=== PATIENT | female | born 1980 | race African-American/Black ===

== ENCOUNTER 2017-06-08 00:02 | Emergency (ER) | payer OTHER ==
[~2017-06-08] VITALS: Ht 160 cm; Wt 97.5 kg
--- NOTE | ~2017-06-08 | EKG ---
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
[2017-06-08 00:34] LABS: BASOPHILS 0.5 % (0.0-2.0); HEMATOCRIT 39.5 % (37.0-47.0); HEMOGLOBIN 12.7 gm/dL (12.0-15.0); LYMPHOCYTES 31.1 % (24.0-44.0); MCH 22.9 pg (26.0-34.0); MCHC 32.1 g/dL (28.0-37.0); MCV 71.4 fL (80.0-100.0); MONOCYTES 6.2 % (1.0-8.0); PLATELET COUNT 347 thou/uL (150-400); POLYS 60.2 % (36.0-66.0); RBC 5.53 mil/uL (4.20-5.00); RDW 14.8 % (10.5-14.5)
[2017-06-08 00:39] LABS: ANION GAP 10 mmol/L (7-16); BUN 7 mg/dL (7-18); CALCIUM 9.2 mg/dL (8.5-10.1); CHLORIDE 102 mmol/L (98-107); CO2 26 mmol/L (21-32); CREATININE 0.7 mg/dL (0.6-1.0); GLUCOSE 105 mg/dL (74-106); POTASSIUM 3.7 mmol/L (3.5-5.1); SODIUM 138 mmol/L (136-145)
[2017-06-08 00:41] LABS: MANUAL DIFF NO
[2017-06-08 00:54] LABS: TROPONIN-I < 0.04 ng/mL (<0.04-0.07)
[2017-06-08 00:55] LABS: ALBUMIN 4.2 g/dL (3.4-5.0); DIRECT BILIRUBIN 0.1 mg/dL (<0.1-0.3); TOTAL BILIRUBIN 0.4 mg/dL (<0.1-1.0); TOTAL PROTEIN 7.5 g/dL (6.4-8.2)
[2017-06-08 01:01] LABS: AMP/METHAMP Negative (Negative); BARBITURATES Negative (Negative); BENZODIAZEPINES Negative (Negative); COCAINE Negative (Negative); METHADONE Negative (Negative); OPIATES Negative (Negative); PCP Negative (Negative); THC Negative (Negative)
[2017-06-08 01:54] LABS: URINE BILIRUBIN NEGATIVE (Negative); URINE BLOOD NEGATIVE (Negative); URINE COLOR YELLOW; URINE GLUCOSE-RANDOM* NEGATIVE (Negative); URINE KETONES NEGATIVE (Negative); URINE PROTEIN (DIPSTICK) NEGATIVE (Negative); URINE SPECIFIC GRAVITY <= 1.005 (1.003-1.035); URINE UROBILINOGEN 0.2 E.U./dl (0.2-1.0)
[2017-06-08 01:58] LABS: URINE LEUKOCYTES-REFLEX TRACE (Negative)
[2017-06-08] MEDS ORDERED: ZOFRAN ODT4 MG PO (02:03)
[2017-06-08 02:42] VITALS: BP 123/71
== END 2017-06-08 02:44 | disposition home or self-care (01) ==
LOC: ER 00:02
PROVIDERS: Emergency Medicine
DX: R10.30 Lower abdominal pain, unspecified (principal); R11.2 Nausea with vomiting, unspecified; I10 Essential (primary) hypertension; Z88.2 Allergy status to sulfonamides

== ENCOUNTER 2017-06-19 17:09 | Emergency (ER) | payer OTHER ==
[~2017-06-19] VITALS: Ht 160 cm; Wt 97.5 kg
[~2017-06-19 17:09] MED LIST: ZOFRAN ODT4 MG PO
[2017-06-19 17:50] LABS: URINE BILIRUBIN NEGATIVE (Negative); URINE BLOOD NEGATIVE (Negative); URINE COLOR YELLOW; URINE GLUCOSE-RANDOM* NEGATIVE (Negative); URINE KETONES TRACE (Negative); URINE PROTEIN (DIPSTICK) NEGATIVE (Negative); URINE SPECIFIC GRAVITY <= 1.005 (1.003-1.035); URINE UROBILINOGEN 0.2 E.U./dl (0.2-1.0)
[2017-06-19 17:51] LABS: URINE LEUKOCYTES-REFLEX 1+ (Negative)
[2017-06-19 17:54] LABS: BASOPHILS 0.4 % (0.0-2.0); EOSINOPHILS 1.1 % (0.0-3.0); HEMATOCRIT 43.3 % (37.0-47.0); HEMOGLOBIN 13.7 gm/dL (12.0-15.0); LYMPHOCYTES 20.5 % (24.0-44.0); MCH 22.5 pg (26.0-34.0); MCHC 31.6 g/dL (28.0-37.0); MCV 71.3 fL (80.0-100.0); MONOCYTES 6.5 % (1.0-8.0); PLATELET COUNT 322 thou/uL (150-400); POLYS 71.5 % (36.0-66.0); RBC 6.08 mil/uL (4.20-5.00); RDW 14.6 % (10.5-14.5); WBC 8.4 thou/uL (4.0-11.0)
[2017-06-19 17:56] LABS: MANUAL DIFF NO
[2017-06-19 18:03] LABS: CASTS None Seen /LPF (None Seen); CRYSTALS None Seen /LPF (None Seen); SQUAMOUS 0-3 Few /LPF (0-3); URINE WBC-REFLEX 0-5 Rare /HPF (0-5)
[2017-06-19 18:04] LABS: URINE RBC None Seen /HPF (0-2)
[2017-06-19 18:10] LABS: CALCIUM 9.9 mg/dL (8.5-10.1); CREATININE 0.8 mg/dL (0.6-1.0); POTASSIUM 3.4 mmol/L (3.5-5.1)
[2017-06-19 18:15] LABS: ALBUMIN 4.8 g/dL (3.4-5.0); TOTAL BILIRUBIN 0.5 mg/dL (<0.1-1.0); TOTAL PROTEIN 8.6 g/dL (6.4-8.2)
[2017-06-19] MEDS ORDERED: NOHOMEMEDICATIONS (18:16)
[2017-06-19] MEDS ORDERED: MACROBID 100 M100 M1 PO (18:20)
[2017-06-19] MEDS ORDERED: POTASSIUM20 MEQ/15 PER TUBE (18:39)
[2017-06-19 18:40] VITALS: BP 133/82
[2017-06-20] MEDS ORDERED: MIRALAX17 GM (02:54)
[2017-06-20] MEDS ORDERED: TRAMADOL 50 MG50 MG PO (03:34)
[2017-06-20] MEDS ORDERED: ZOFRAN ODT8 MG PO (04:09)
[2017-06-20] MEDS ORDERED: ROBAXIN500 MG PO (04:09)
[2017-06-20] MEDS ORDERED: POTASSIUM20 PO (04:24)
== END 2017-06-19 18:42 | disposition home or self-care (01) ==
LOC: ER 17:09
PROVIDERS: Physician Assistant
DX: N39.0 Urinary tract infection, site not specified (principal); E87.6 Hypokalemia; I10 Essential (primary) hypertension; F10.99 Alcohol use, unspecified with unspecified alcohol-induced disorder; Z98.890 Other specified postprocedural states; Z88.2 Allergy status to sulfonamides

== ENCOUNTER 2017-06-20 02:45 | Emergency (ER) | payer OTHER ==
[~2017-06-20] VITALS: Ht 160 cm; Wt 97.5 kg
[~2017-06-20 02:45] MED LIST changes: +MACROBID 100 M100 M1 PO; +NOHOMEMEDICATIONS; +POTASSIUM20 MEQ/15 PER TUBE
[2017-06-20] MEDS ORDERED: MIRALAX17 GM (02:54)
[2017-06-20] MEDS ORDERED: TRAMADOL 50 MG50 MG PO (03:34)
[2017-06-20] MEDS ORDERED: ROBAXIN500 MG PO (04:09)
[2017-06-20] MEDS ORDERED: ZOFRAN ODT8 MG PO (04:09)
[2017-06-20] MEDS ORDERED: POTASSIUM20 PO (04:24)
[2017-06-20 04:38] VITALS: BP 143/75
== END 2017-06-20 04:41 | disposition home or self-care (01) ==
LOC: ER 02:45
DX: R11.2 Nausea with vomiting, unspecified (principal); I10 Essential (primary) hypertension; Z88.2 Allergy status to sulfonamides